=== PATIENT | female | born 1965 | race Caucasian/White ===

== ENCOUNTER 2020-06-18 11:51 | Emergency (ER) | payer MEDICARE ==
[~2020-06-18] VITALS: Ht 165.1 cm; Wt 103.0 kg
[2020-06-18 11:54] VITALS: BP 134/81
[2020-06-18] MEDS ORDERED: ACET-3068 PO (14:35)
== END 2020-06-18 14:53 | disposition home or self-care (01) ==
LOC: ER 11:51
DX: S83.8X1A Sprain of other specified parts of right knee, initial encounter (principal); F31.9 Bipolar disorder, unspecified; F17.200 Nicotine dependence, unspecified, uncomplicated; F12.90 Cannabis use, unspecified, uncomplicated; Z98.890 Other specified postprocedural states; Z88.8 Allergy status to other drugs, medicaments and biological substances; Z79.899 Other long term (current) drug therapy; X50.1XXA Overexertion from prolonged static or awkward postures, initial encounter; Y93.89 Activity, other specified; Y92.89 Other specified places as the place of occurrence of the external cause; Y99.8 Other external cause status
CPT/HCPCS: 29505; 73564; 99283